=== PATIENT | female | born 1955 | race Asian ===

== ENCOUNTER 2016-08-12 05:51 | Day surgery (SDC) | payer MEDICARE, OTHER ==
[~2016-08-12] VITALS: Ht 162.6 cm; Wt 91.0 kg
[~2016-08-12 05:51] MED LIST: BACL10TA PO; CITA40TA13 PO; GABA600T2 PO; IBUP200C PO; IMIP50TA4 PO; KETACONAZOLE CREAM TP; LOSA100T29 PO; Lactated Ringer's 1,000 ML IV ONE; OXYC1TAB24 PO; OXYC5TAB72 PO
[2016-08-12] MEDS ORDERED: Propofol 10,000 mCg/mL 20 mL Inj ONE (05:52)
[2016-08-12] MEDS ORDERED: Dexamethasone 4 mg/mL Inj ONE (05:52)
[2016-08-12 06:18] VITALS: BP 142/72; PULSE 79; RESP 16; O2SAT 96
[2016-08-12] MEDS ORDERED: oxyCODONE-Acetamin 5-325 mg Tablet PO PRN (07:15)
[2016-08-12] MEDS ORDERED: Lidocaine 1%-Epi 1:100,000 20 mL Inj INFILTRATE ONE (07:42)
[2016-08-12 07:57] VITALS: BP 134/72; PULSE 81; RESP 16; O2SAT 97
[2016-08-12 08:00] VITALS: BP 134/79; PULSE 80; RESP 16; O2SAT 98
[2016-08-12] MEDS ORDERED: Lactated Ringer's 1,000 ML IV SCH (08:08)
[2016-08-12] MEDS ORDERED: Lactated Ringer's 500 ML IV PRN (08:08)
[2016-08-12] MEDS ORDERED: Labetalol 5 mg/mL 4 mL Inj IV PRN (08:10)
[2016-08-12] MEDS ORDERED: EPHEDrine Sulfate 50 mg/mL Inj IVPUSH PRN (08:10)
[2016-08-12] MEDS ORDERED: Ondansetron 2 mg/mL 2 mL Inj IVPUSH PRN (08:10)
[2016-08-12] MEDS ORDERED: HYDROmorphone 1 mg/mL Inj IVPUSH PRN (08:10)
[2016-08-12] MEDS ORDERED: Dexamethasone 4 mg/mL Inj IVPUSH PRN (08:10)
[2016-08-12] MEDS ORDERED: Atropine 0.4 mg/mL Inj IVPUSH PRN (08:10)
[2016-08-12] MEDS ORDERED: fentaNYL-PF 50 mCg/mL 2 mL Inj IVPUSH PRN (08:10)
[2016-08-12] MEDS ORDERED: Phenylephrine 10,000 mCg/mL Inj IVPUSH PRN (08:10)
[2016-08-12] MEDS ORDERED: MetoCLOpramide 5 mg/mL 2 mL Inj IVPUSH PRN (08:10)
--- NOTE | 2016-08-12 08:11 | PCM.ANEP1 ---
Post Anesthesia Phase 1 PACU Phase 1 Assessment Date of Service: Aug 12, 2016 Vital Signs Vital Signs Date Time Temp Pulse Resp B/P Pulse Ox O2 Delivery O2 Flow Rate FiO2 08/12/16 08:00 80 16 134/79 98 Room Air 08/12/16 07:57 37.1 81 16 134/72 97 Room Air 08/12/16 06:18 36.5 79 16 142/72 96 Room Air Level of Alertness: Awake, talking LY's with Equal Strength: Yes Pain: No Nausea or Vomiting: No Airway Device: Endotrachial Tube Oxygen Delivery: Room Air Lungs: Clear to Auscultation, Normal Air Movement Dermatome Level: Full Sensation (consitent with regional block) Uziel Slaughter DO Aug 12, 2016 08:11
--- NOTE | 2016-08-12 08:11 | PCM.HPANE ---
Patient Data Date of Service: Aug 12, 2016 Surgeon Admitting Provider: Attending Provider:Neto Butts DO Primary Care Physician:Sharlene Martinez MD Other Provider:Zion Crawley Anesthesia Reason for Visit Right Carpal Tunnel Syndrome Ht/WT & BMI Height (Feet): 5 Height (Inches): 4 Weight (Kilograms): 91.0 Body Mass Index 34.00 Allergies Coded Allergies: No Known Allergies (Verified Allergy, Unknown, 08/09/16) Past Anesthesia History Anesthesia History: Denies:: Anesthesia Reactions, Malignant Hyperthermia Diabetes History Hx Diabetes?: No MRSA MRSA: No Medications Hypertension Medication: Yes (LOSARTAN) Home Meds Incl Beta Gabriel: No Reported Medications oxyCODONE-Acetaminophen 5-325 mg 1 Each Tablet0.5-1 Tab PO Q6H PRN For Pain Ref 0 08/09/16 oxyCODONE 5 Mg Tablet5 Mg PO Q6H PRN For Pain Ref 0 08/09/16 Losartan Potassium 100 Mg Vjedff820 Mg PO DAILY 08/09/16 [Ketaconazole Cream] No Conflict Check1 Applic TP BID 2% 08/09/16 Imipramine HCl 50 Mg Qvosqr84 Mg PO BID Ref 0 08/09/16 Ibuprofen 200 Mg Zxluuwa073 Mg PO QID PRN For Pain Ref 0 08/09/16 Gabapentin 600 Mg Nzeuar321 Mg PO BID Ref 0 TAKES 300MG IN AM; 1200MG IN PM 08/09/16 Citalopram 40 Mg Naxxuf47 Mg PO DAILY 30 Days Ref 0 08/09/16 Baclofen 10 Mg Gsrqna10-79 Mg PO TID PRN PRN Ref 0 08/09/16 Discontinued Reported Medications Citalopram-Expunged Drug, Do Not Renew! 20 Mg Lejezy65 Mg PO DAILY 09/25/11 Omeprazole-Expunged Drug, Do Not Renew! 20 Mg Tablet.dr20 Mg PO DAILY 09/25/11 Lisinopril-Expunged Drug, Do Not Renew! 10 Mg Ibajxd55 Mg PO BID 09/25/11 Gabapentin-Expunged Drug, Do Not Renew! (Neurontin-Expunged Drug, Do Not Renew!) 600 Mg Ewyxyc611 Mg PO HS 2 CAPS HS 09/25/11 Gabapentin-Expunged Drug, Do Not Renew! (Neurontin-Expunged Drug, Do Not Renew!) 300 Mg Aqhztkq173 Mg PO AM AND AT NOON 09/25/11 Oxycodone/APAP-Expunged Drug, Do Not Renew! (Roxicet 5/325-Expunged Drug, Do Not Renew!)1 Tab Tablet1 Tab PO Q4 09/25/11 History History of ENT Problems?: No Hx of Heart Problems?: Yes Cardiovascular History: Positive for:: Hypertension Denies:: Heart Murmur (MPS 08/2011 EF 73%) Other Cardiac History: C/OF BRUISING EASILY Hx of Respiratory Problem?: Yes Respiratory History: Positive for:: Asthma Denies:: Tuberculosis (HX OF + PPD) Use of C-PAP Machine Hx Neurologic Problems?: Yes Hx of GI Problems?: No Hx of Problems?: Yes Female Hx: Denies:: Currently Skin History: Denies:: History Skin Disorders? Pressure Ulcers Hx Musculoskeletal Problems?: Yes Musculoskeletal History: Positive for:: Osteoarthritis Denies:: Back Injury (C/OF NECK & LOWER BACK PAIN) Hx of Psycho/Social Problems?: Yes Psycho Social History: Positive for:: Anxiety Hx Depression Hx Surgeries?: Yes (RT L5S1 DISCECTOMY X2) Hx Any Other Health Problems?: Yes Other History: Positive for:: Thyroid Disease (HX OF THYROID NODULE) Denies:: Cancer Endocrine Disease (C/OF NIGHT SWEATS,HEAT INTOLERANCE) Hospitalization Hx Diabetes: No Have You Smoked inLast 12 mo: No Stop/Bang Treated for Sleep Apnea?: No Do You Have a CPAP Machine?: No S-Snoring: Do You Snore Loudly: No T-Tired: feel tired, fatigued: Yes O-Obsered: Observed not breath: No P-Blood Pressure: treated: Yes B- Body Mass Index > 35 kg/m2: No A- Age over 50: Yes N- Neck Large Circumference: No G- Gender Male: No LINUS Total Score: 3 LINUS Risk Assessment: Low Risk, <3 Yes Risk Assessment Category Category 1A: Patient has history of documented sleep apnea, and HAS NOT received any narcotic, sedative or anesthesia administration during this stay. Category 1B: Patient has history of documented sleep apnea, and HAS received any narcotic , sedative or anesthesia administration during this stay Category 2: Patient has SUSPECTED Obstructive Sleep Apnea, and HAS received any narcotic , sedative or anesthesia administration during this stay. Category 3: Patient has SUSPECTED Obstructive Sleep Apnea and HAS NOT received narcotic, sedative or anesthesia administration during this stay. Category 4: Outpatient in Procedural Areas with known sleep apnea or who screen positive for High Risk via the STOP/BANG questionnaire. Exam Exam Vital Signs Vital Signs Date Time Temp Pulse Resp B/P Pulse Ox O2 Delivery O2 Flow Rate FiO2 08/12/16 08:00 80 16 134/79 98 Room Air 08/12/16 07:57 37.1 81 16 134/72 97 Room Air 08/12/16 06:18 36.5 79 16 142/72 96 Room Air General Appearance: Alert, Oriented X3, Cooperative, No Acute Distress HEENT/AIRWAY: MP 3 (Large tongue, thick neck) Lungs: Clear to Auscultation, Normal Air Movement Heart: Exam Unremarkable, Normal S1, Normal S2 Meds/Labs/Diagnostics Admission Meds Current Medications Lactated Ringer's (Lr) 1,000 ml @ 120 mls/hr Q8H20M ONCE IV Last administered on 08/12/16 06:11; Start 08/12/16 at 05:00; Stop 08/12/16 at 13:19 Lidocaine/ Epinephrine (Xylocaine 1%-Epinephrine 1:100,000 Inj) 20 ml STK-MED ONCE INFILTRATE Last administered on 08/12/16 07:42; Start 08/12/16 at 07:42; Stop 08/12/16 at 07:45; Status DC Plan Impression Patient chart reviewed, patient interviewed and anesthestic plan with risks, benefits, and alternatives discussed, and informed consent obtained. NPO Status: 08/11/16 ASA Physical Status: ASA2 Mod Systemic Disease Anesthetic Plan: MAC, Regional Block Bene/Risks/Altern/Consents: Yes HP Complete Prior to Induction: Yes Uziel Slaughter DO Aug 12, 2016 08:10
--- NOTE | 2016-08-12 08:26 | OP ---
[address] [address] OPERATIVE REPORT PATIENT: ADAM BURRELL V : 1955 MR#: [id number] ADMIT: 08/12/2016 JOB ID: [id number] DATE OF SURGERY: 08/12/2016 PREOPERATIVE DIAGNOSIS(ES): Right carpal tunnel syndrome. POSTOPERATIVE DIAGNOSIS(ES): Right carpal tunnel syndrome. PROCEDURE: Right open carpal tunnel release. SURGEON: Neto Butts DO ANESTHESIA: Adrian block. HISTORY: The patient is a pleasant, 61-year-old female, with a longstanding history of right hand pain and paresthesias. She failed conservative treatment with nighttime brace and continues to have symptoms of carpal tunnel syndrome. Discussed with the patient. After obtaining electrodiagnostic studies, the risks, benefits, and indications, it was determined to proceed with a right open carpal tunnel release. She understood the risks include, but not limited to, neurovascular injury, tendon injury, infection, failure to resolve the patient's preoperative symptoms, stiffness, persistent pain which will require further intervention. The patient had all questions answered. Consent was signed and placed in the chart. PROCEDURE IN DETAIL: The patient was brought to the operative suite and placed supine on the operating table. Surgical time-out was then performed. Everyone in the room was in agreement. After appropriate anesthesia was obtained, the right arm was then prepped and draped in a sterile fashion. A standard 2 cm longitudinal incision was made in line with the radial aspect of the ring finger and ulnar aspect of the palmaris longus. The incision was kept distal to the wrist crease and proximal to the Palumbo's cardinal line. Subcutaneous tissues were dissected. Bipolar electrocautery was utilized to maintain hemostasis throughout the procedure. The palmar fascia was first identified and incised longitudinally in line with the skin incision, followed by exposure of the underlying transverse carpal ligament. The transverse carpal ligament was then released in its entirety to include the distal extent of the antebrachial fascia. Copious irrigation was performed, followed by closure of the skin with 5-0 nylon in a simple interrupted fashion. ESTIMATED BLOOD LOSS: Less than 1 cc. COMPLICATIONS: None. DISPOSITION: The patient tolerated the procedure well. Anesthesia was reversed. The patient was transferred back to the recovery room. POSTOPERATIVE PLAN: The patient will follow up in the office in two weeks. We will remove the patient's sutures at that time and have her start working on range of motion and scar mobilization.
--- NOTE | 2016-08-12 08:48 | PCM.ANEP2 ---
Post Anesthesia Evaluation ASA/CMS Post Anesthesia Date of Service: Aug 12, 2016 VS in Patient's Normal Range?: Yes Resp Stable; Airway Patent?: Yes CV Function & Hydration Stable: Yes Mental Status Recovered?: Yes Pain control Satisfactory?: Yes N/V Control Satisfactory?: Yes Uziel Slaughter DO Aug 12, 2016 08:48
[2016-10-28] MEDS ORDERED: IMIP50TA4 PO (12:04)
[2016-10-28] MEDS ORDERED: OXYC5TAB72 PO (12:04)
[2016-10-28] MEDS ORDERED: KTC2C15 TP (12:04)
[2016-10-28] MEDS ORDERED: LOSA100T29 PO (12:04)
[2016-10-28] MEDS ORDERED: IBUP-1827 PO (12:04)
[2016-10-28] MEDS ORDERED: OXYC1TAB24 PO (12:04)
[2016-10-28] MEDS ORDERED: GABA600T2 PO ×2 (12:04)
[2016-10-28] MEDS ORDERED: NAPR250T PO (12:04)
[2016-10-28] MEDS ORDERED: CITA20TA11 PO (12:04)
[2016-10-28] MEDS ORDERED: BACL10TA PO (12:04)
== END 2016-08-12 23:59 | disposition home or self-care (01) ==
LOC: SAS 05:51
PROVIDERS: ATTEND Orthopaedic Surgery
DX: G56.01 Carpal tunnel syndrome, right upper limb (principal); I10 Essential (primary) hypertension
CPT/HCPCS: 64721; J1100; J2250; J7120

== ENCOUNTER 2016-10-31 06:08 | Day surgery (SDC) | payer MEDICARE, OTHER ==
[~2016-10-31] VITALS: Ht 162.6 cm; Wt 92.6 kg
[2016-10-31] VITALS (9 sets, daily range): BP systolic 124–161; BP diastolic 63–90; PULSE 71–81; RESP 14–19; O2SAT 93–98
[~2016-10-31 06:08] MED LIST changes: +CITA20TA11 PO; -CITA40TA13 PO; +IBUP-1827 PO; -IBUP200C PO; -KETACONAZOLE CREAM TP; +KTC2C15 TP; -Lactated Ringer's 1,000 ML IV ONE; +Lactated Ringer's 1,000 ML IV SCH; +NAPR250T PO
[2016-10-31] MEDS ORDERED: fentaNYL-PF 50 mCg/mL 2 mL Inj ONE (06:09)
[2016-10-31] MEDS ORDERED: Ondansetron 2 mg/mL 2 mL Inj ONE (06:09)
[2016-10-31] MEDS ORDERED: Dexamethasone 4 mg/mL Inj ONE (06:09)
[2016-10-31] MEDS ORDERED: Lactated Ringer's 1,000 ML IV ONE (06:38)
[2016-10-31] MEDS ORDERED: oxyCODONE-Acetamin 5-325 mg Tablet PO PRN (07:20)
[2016-10-31] MEDS ORDERED: Lactated Ringer's 500 ML IV PRN (07:35)
[2016-10-31] MEDS ORDERED: Phenylephrine 10,000 mCg/mL Inj IVPUSH PRN (07:35)
[2016-10-31] MEDS ORDERED: Lactated Ringer's 1,000 ML IV SCH (07:35)
[2016-10-31] MEDS ORDERED: fentaNYL-PF 50 mCg/mL 2 mL Inj IVPUSH PRN (07:35)
[2016-10-31] MEDS ORDERED: HYDROmorphone 1 mg/mL Inj IVPUSH PRN (07:35)
[2016-10-31] MEDS ORDERED: EPHEDrine Sulfate 50 mg/mL Inj IVPUSH PRN (07:35)
[2016-10-31] MEDS ORDERED: Dexamethasone 4 mg/mL Inj IVPUSH PRN (07:35)
[2016-10-31] MEDS ORDERED: Ondansetron 2 mg/mL 2 mL Inj IVPUSH PRN (07:35)
[2016-10-31] MEDS ORDERED: MetoCLOpramide 5 mg/mL 2 mL Inj IVPUSH PRN (07:35)
--- NOTE | 2016-10-31 07:35 | PCM.HPANE ---
Patient Data Surgeon Admitting Provider: Attending Provider:Neto Butts DO Primary Care Physician:Sharlene Martinez MD Other Provider:Zion Crawley Anesthesia Reason for Visit Left Carpal Tunnel Syndrome Ht/WT & BMI Height (Feet): 5 Height (Inches): 4.00 Weight (Kilograms): 92.620 Body Mass Index 34.00 Allergies Coded Allergies: No Known Allergies (Verified Allergy, Unknown, 08/09/16) Past Anesthesia History Anesthesia History: Denies:: Abnormal Airway, Anesthesia Reactions, Difficult Intubation, Fam Anesthesia Reaction, Malignant Hyperthermia Diabetes History Hx Diabetes?: No MRSA MRSA: No Medications Hypertension Medication: Yes Home Meds Incl Beta Gabriel: No Reported Medications oxyCODONE-Acetaminophen 5-325 mg 1 Each Tablet0.5-1 Tab PO Q6H PRN For Pain Ref 0 10/28/16 oxyCODONE 5 Mg Tablet5 Mg PO Q6H PRN For Pain Ref 0 10/28/16 Naproxen 250 Mg Upqfta725 Mg PO BID PRN For Pain Ref 0 10/28/16 Losartan Potassium 100 Mg Rbqtfw017 Mg PO DAILY 10/28/16 Ketoconazole 15 Gm Cream..g.15 Gm TP BID 10/28/16 Imipramine HCl 50 Mg Vfakgn81 Mg PO HS Ref 0 10/28/16 Ibuprofen 600 Mg Dqpyzf794 Mg PO QID PRN For Pain Ref 0 10/28/16 Gabapentin 600 Mg Tablet1,200 Mg PO QPM Ref 0 10/28/16 Gabapentin 600 Mg Xevwct650 Mg PO QAM Ref 0 10/28/16 Citalopram 20 Mg Wyyxqs95 Mg PO DAILY Ref 0 10/28/16 Baclofen 10 Mg Xmlgno76-65 Mg PO TID PRN For Spasm Ref 0 10/28/16 Discontinued Reported Medications oxyCODONE-Acetaminophen 5-325 mg 1 Each Tablet0.5-1 Tab PO Q6H PRN For Pain Ref 0 08/09/16 oxyCODONE 5 Mg Tablet5 Mg PO Q6H PRN For Pain Ref 0 08/09/16 Losartan Potassium 100 Mg Wjzrzz727 Mg PO DAILY 08/09/16 [Ketaconazole Cream] No Conflict Check1 Applic TP BID 2% 08/09/16 Imipramine HCl 50 Mg Hmspkr77 Mg PO BID Ref 0 08/09/16 Ibuprofen 200 Mg Uzgijyi093 Mg PO QID PRN For Pain Ref 0 08/09/16 Gabapentin 600 Mg Zwpjfq100 Mg PO BID Ref 0 TAKES 300MG IN AM; 1200MG IN PM 08/09/16 Citalopram 40 Mg Ujjdym18 Mg PO DAILY 30 Days Ref 0 08/09/16 Baclofen 10 Mg Iylpwr79-70 Mg PO TID PRN PRN Ref 0 08/09/16 History History of ENT Problems?: No HEENT History: Denies:: Abnormal Airway Difficult Intubation Denture Type: None Teeth Condition: Within Normal Limits Hx of Heart Problems?: Yes Cardiovascular History: Positive for:: Hypertension Denies:: Heart Murmur Valvular Heart Disease (MPS 2012- ef 73%) Hx of Respiratory Problem?: Yes Respiratory History: Positive for:: Asthma Denies:: Oxygen Administration Tuberculosis (hx of + PPD test) Use of C-PAP Machine Use of Inhalers / NEBS Hx Neurologic Problems?: Yes Hx of GI Problems?: No Hx of Problems?: Yes Female Hx: Denies:: Currently Problems with Breasts? Skin History: Denies:: History Skin Disorders? Pressure Ulcers Hx Musculoskeletal Problems?: Yes Musculoskeletal History: Positive for:: Musculoskeletal Trauma (left carpal tunnel current plan, right side done 08/16) Osteoarthritis Denies:: Back Injury (hx rt l5S1 disc surgery, cervical spinal stenosis) Fibromyalgia Joint Replacement Hx of Psycho/Social Problems?: Yes Psycho Social History: Positive for:: Anxiety Hx Depression Hx Surgeries?: Yes (L5S1 disc, right carpal tunnel) Hx Any Other Health Problems?: Yes Other History: Positive for:: Thyroid Disease (thyroid nodule) Denies:: Cancer Endocrine Disease Hospitalization Hx Diabetes: No Hx Alcohol Use: NoHx Substance Use: No Smoking Status: Never Smoker Have You Smoked inLast 12 mo: No Stop/Bang Treated for Sleep Apnea?: No Do You Have a CPAP Machine?: No S-Snoring: Do You Snore Loudly: No T-Tired: feel tired, fatigued: Yes O-Obsered: Observed not breath: No P-Blood Pressure: treated: Yes B- Body Mass Index > 35 kg/m2: No A- Age over 50: Yes N- Neck Large Circumference: No G- Gender Male: No LINUS Total Score: 3 LINUS Risk Assessment: High Risk, =/>3 Yes LINUS Category 4 OutPt Procedure: Yes Risk Assessment Category Category 1A: Patient has history of documented sleep apnea, and HAS NOT received any narcotic, sedative or anesthesia administration during this stay. Category 1B: Patient has history of documented sleep apnea, and HAS received any narcotic , sedative or anesthesia administration during this stay Category 2: Patient has SUSPECTED Obstructive Sleep Apnea, and HAS received any narcotic , sedative or anesthesia administration during this stay. Category 3: Patient has SUSPECTED Obstructive Sleep Apnea and HAS NOT received narcotic, sedative or anesthesia administration during this stay. Category 4: Outpatient in Procedural Areas with known sleep apnea or who screen positive for High Risk via the STOP/BANG questionnaire. Exam Exam Vital Signs Vital Signs Date Time Temp Pulse Resp B/P Pulse Ox O2 Delivery O2 Flow Rate FiO2 10/31/16 06:50 36.3 71 17 141/71 97 Room Air General Appearance: Alert, Oriented X3, Cooperative, No Acute Distress HEENT/AIRWAY: MP 2 Lungs: Clear to Auscultation, Normal Air Movement Heart: Exam Unremarkable, Regular Rate/Rhythm, No Murmurs/Rubs/Gallops Meds/Labs/Diagnostics Admission Meds Current Medications Lactated Ringer's (Lr) 1,000 ml @ ud STK-MED ONCE IV Last administered on t 06:38; Start 10/31/16 at 06:38; Stop 10/31/16 at 06:39; Status DC Plan Impression Patient chart reviewed, patient interviewed and anesthestic plan with risks, benefits, and alternatives discussed, and informed consent obtained. ASA Physical Status: ASA2 Mod Systemic Disease Anesthetic Plan: MARTINE KEYES Shaun P MD October 31, 2016 07:35
[2016-10-31] MEDS ORDERED: Lidocaine 1%-Epi 1:100,000 20 mL Inj INFILTRATE ONE (08:01)
--- NOTE | 2016-10-31 09:09 | OP ---
[address] [address] OPERATIVE REPORT PATIENT: ADAM BURRELL V : 1955 MR#: [id number] ADMIT: 10/31/2016 JOB ID: [id number] DATE OF SURGERY: 10/31/2016 PREOPERATIVE DIAGNOSIS(ES): Left carpal tunnel syndrome. POSTOPERATIVE DIAGNOSIS(ES): Left carpal tunnel syndrome. PROCEDURE: Left open carpal tunnel release. SURGEON: Neto Butts D.O. ANESTHESIA: Adrian block. HISTORY: The patient is a pleasant 60-year-old female with a longstanding history of bilateral hand pain and paresthesias. She originally underwent a right carpal tunnel release by me several weeks prior. She is doing very well in regards to the right hand but continued to have symptoms to the left despite night time bracing. Discussed proceeding with a left open carpal tunnel release. She understood the risks, benefits, alternatives and indications as she has had the same procedure performed on the contralateral hand. All questions were answered. Consent was signed and placed in the chart. PROCEDURE IN DETAIL: The patient was brought to the operative suite and placed supine on the operating table. Surgical time-out was performed. Everyone in the room was in agreement. After appropriate anesthesia was obtained, the left arm was then prepped and draped in a sterile fashion. A standard 2 cm longitudinal incision was made in line with the radial aspect of the ring finger and the ulnar aspect of the palmaris longus. The incision was kept distal to the wrist crease and proximal to Palumbo cardinal line. Subcutaneous tissues were dissected with bipolar electrocautery utilized to maintain hemostasis throughout the procedure. The palmar fascia was first identified and incised longitudinally in line with the skin incision followed by exposure of the underlying transverse carpal ligament. The transverse carpal ligament was then released in its entirety to include the distal extent of the antebrachial fascia. Copious irrigation was performed followed by closure of the skin with 5-0 nylon in a simple interrupted fashion. The patient was then placed in a bulky soft dressing. ESTIMATED BLOOD LOSS: Less than 1 cc. COMPLICATIONS: None. DISPOSITION: The patient tolerated the procedure well. Anesthesia was reversed. The patient was transferred back to recovery. POSTOPERATIVE PLAN: The patient will followup in my office in two weeks. We will remove the patient's sutures at that time and have her start working on range of motion and scar mobilization.
== END 2016-10-31 23:59 | disposition home or self-care (01) ==
LOC: SAS 06:08
PROVIDERS: ATTEND Orthopaedic Surgery
DX: G56.02 Carpal tunnel syndrome, left upper limb (principal); I10 Essential (primary) hypertension; F41.8 Other specified anxiety disorders; M50.30 Other cervical disc degeneration, unspecified cervical region; M19.90 Unspecified osteoarthritis, unspecified site; J45.909 Unspecified asthma, uncomplicated; M54.40 Lumbago with sciatica, unspecified side
CPT/HCPCS: 64721; J1100; J2250; J2405; J3010; J7120